=== PATIENT | male | born 1960 | race Caucasian/White ===

== ENCOUNTER 2023-01-06 14:08 | Inpatient (IN) | payer OTHER, MEDICAID ==
[~2023-01-06] VITALS: Ht 172.7 cm; Wt 70.4 kg
[~2023-01-06 14:08] MED LIST: APIX2.5T PO; FLOR.1 PO; FOLI-43 PO; FURO40TA5 PO; GLU500 PO; HYDR-4037 PO; INSU100I22 SQ; LEVA1.2527 NEB; NEU300 PO; PRO40 PO; SENN-153 PO; SSNOVOLOG SUBCUT; THIA100T70 PO; TRAM50TA2 PO
[2023-01-06 14:21] VITALS: BP_SYST 125
--- NOTE | 2023-01-06 14:25 | NUR ---
Patient BIB by EMS for [facility], per EMS patient was found on RA with saturation in the low 80%s, patient was placed on 2L NC by EMS and brought to ED for Eval. Per facility patient baseline is AOx3/4.
--- NOTE | 2023-01-06 14:30 | NUR ---
ER at bedside examining patient.
[2023-01-06 14:55] LABS: BASOPHILS # (AUTO) 0.1 K/uL (0.0-0.2); BASOPHILS % (AUTO) 0.9 % (0.0-2.0); EOSINOPHILS # (AUTO) 0.2 K/uL (0.0-0.4); EOSINOPHILS % (AUTO) 1.5 % (0.0-4.0); HEMATOCRIT 35.6 % (36-54); HEMOGLOBIN 11.8 g/dL (14.0-18.0); LYMPHOCYTES # (AUTO) 2.1 K/uL (1.0-5.5); LYMPHOCYTES % (AUTO) 14.1 % (20.5-51.5); MEAN CORPUSCULAR HEMOGLOBIN 29 pg (27-31); MEAN CORPUSCULAR HGB CONC 33 % (32-36); MEAN CORPUSCULAR VOLUME 88 fL (79.0-98.0); MONOCYTES # (AUTO) 1.4 K/uL (0.0-1.0); MONOCYTES % (AUTO) 9.1 % (1.7-9.3); NEUTROPHILS # (AUTO) 11.2 K/uL (1.8-7.7); NEUTROPHILS % (AUTO) 74.4 % (40.0-70.0); PLATELET COUNT (AUTO) 223 K/uL (130-430); RED BLOOD CELL COUNT(AUTO) 4.04 MIL/uL (4.2-6.2); RED CELL DISTRIBUTION WIDTH 14.6 % (9.0-15.0)
[2023-01-06 15:01] LABS: ANION GAP 7 (5-15); CHLORIDE 98 mmol/L (98-107); CREATININE 1.79 mg/dL (0.55-1.30); GFR AFRICAN AMERICAN 49 mL/min (>90); GLUCOSE 181 mg/dL (70-99); UREA NITROGEN, BLOOD 33 mg/dL (8-21)
--- NOTE | 2023-01-06 15:05 | NUR ---
covid and flu nasal swab collected at bedside and sent to lab
[2023-01-06 15:08] LABS: ALANINE AMINOTRANSFERASE 17 U/L (12-78); ALBUMIN 3.4 g/dL (3.4-4.8); ASPARTATE AMINOTRANSFERASE 10 U/L (10-37); TOTAL BILIRUBIN 0.4 mg/dL (0.0-1.0)
--- NOTE | 2023-01-06 17:34 | NUR ---
Urine specimen taken to lab.
[2023-01-06 17:55] LABS: BILIRUBIN,URINE NEGATIVE (NEGATIVE); COLOR,URINE YELLOW (YELLOW); GLUCOSE,URINE NEGATIVE (NEGATIVE); KETONES,URINE NEGATIVE (NEGATIVE); LEUKOCYTE ESTERASE ,URINE NEGATIVE (NEGATIVE); NITRITE, URINE NEGATIVE (NEGATIVE); PROTEIN URINE 3+ (NEGATIVE); UROBILINOGEN,URINE 0.2 (0.2-1.0)
[2023-01-06 18:04] LABS: BLOOD, URINE TRACE (NEGATIVE)
[2023-01-06] MEDS ORDERED: INSU100I26 SUBCUT (18:04)
[2023-01-06] MEDS ORDERED: DULO30CA52 PO (18:04)
[2023-01-06] MEDS ORDERED: INSU100I4 SUBCUT (18:04)
[2023-01-06 18:08] LABS: BACTERIA,URINE None Seen /HPF (None Seen); MUCUS,URINE None Seen /LPF (None Seen); RBC,URINE 0-3 /HPF (0-3); WBC,URINE NONE SEEN /HPF (0-3)
[2023-01-06 18:09] LABS: CLARITY/URINE CLEAR (CLEAR)
[2023-01-06] MEDS ORDERED: PIPERACILLIN/TAZO 3.375 GM in NS 50 ML IV ONE (18:15)
--- NOTE | 2023-01-06 18:21 | NUR ---
Admit bed requested Patient will be admitted to care of . Admitted to TELEMETRY unit. Diagnosis PNA,DEHYDRATION Inpatient (Yes or No) Y Observation (Yes or No) N Orientation concerns or request close to nursing station (Yes or No) N Covid Status NEG On vent or bipap N Isolation requirements N Needs a sitter N From Home (Yes or if No enter name of facility) [facility] Requires Dialysis (Yes or No) N Med Rec Completed (Yes of No) Y
[2023-01-06] MEDS ORDERED: PIPERACILLIN/TAZOBACTAM 3.375 GM/VIAL (ZOSYN) IV ONE ×2 (18:54→21:42)
--- NOTE | 2023-01-06 19:27 | NUR ---
Report given to Gonzalo
--- NOTE | 2023-01-06 19:30 | NUR ---
Patient resting in bed, alert, chest rise and fall symmetrical, no c/o pain or s/s of distress, on monitor.
--- NOTE | 2023-01-06 19:44 | NUR ---
Note jerilyn in ED - 01/06/23 at 1945 by [id number] Patient resting in bed, alert, chest rise and fall symmetrical, no c/o pain or s/s of distress, on monitor.
--- NOTE | 2023-01-06 20:00 | NUR ---
ADMIT NOTE Received pt from ER with a diagnosis of Pneumonia and Dehydration. He is lethargic, yet arousable and able to state his name and . Admission process initiated. patient oriented to pain management, safety and instructed on use of call light. Safety precautions in place.
[2023-01-06 20:15] VITALS: BP_SYST 121
--- NOTE | 2023-01-06 20:15 | NUR ---
Patient will be admitted to care of Dr. Taylor. Admitted to Telemetry unit. Will go to room 120A. Belongings list completed. Complete and up to date summary report printed. SBAR report to be given at bedside to Ruby VALLADARES with opportunity for questions. Ruby VALLADARES verbalized understanding of report, no further questions.
--- NOTE | 2023-01-06 21:28 | NUR ---
Dr. Parker, rounds Here at [facility]ST unit to see patient, reconcile meds and enter new med orders. Received order to add Boost (Glucerna) TID and give one shake now, TORB.
[2023-01-06] MEDS ORDERED: ACETAMINOPHEN 325 MG TABLET PO PRN (21:30)
[2023-01-06] MEDS ORDERED: hydrALAZINE HCL 10 MG TABLET PO PRN (21:30)
[2023-01-06] MEDS ORDERED: levalbuterol HCL 0.63 MG/3 ML VIAL.NEB INH PRN (21:30)
--- NOTE | 2023-01-06 21:40 | NUR ---
NOTES: Dr. Ashleyium here, seen pt. with admitting orders.
[2023-01-06] MEDS ORDERED: VANCOMYCIN HCL 1 GM/NS PREMIX 250 ML IV ONE (22:45)
[2023-01-06] MEDS: INSULIN REGULAR, HUMAN 100 UNITS/ML, 3 ML VIAL (humuLIN R) SUBCUT PRN (22:54)
[2023-01-06] MEDS: 0.45% NACL 1,000 ML IV SCH (22:57)
[2023-01-06] MEDS: APIXABAN 2.5 MG TABLET PO SCH (22:58)
[2023-01-06 23:23] VITALS: BP_SYST 136
[2023-01-06] MEDS ORDERED: VANCOMYCIN HCL 1000 MG/VIAL IV ONE (23:31)
--- NOTE | 2023-01-06 23:47 | NUR ---
NOTES: IVF started with 1/2 NS @ 75 cc/hr. Glucerna taken orally with medication. BS checked 221 with sliding scale coverage given. rt. knee scab , picture taken.
[2023-01-07] MEDS ORDERED: PIPERACILLIN/TAZO 3.375/DEX-IS 50 ML IV SCH
[2023-01-07 03:03] VITALS: BP_SYST 126
--- NOTE | 2023-01-07 03:05 | NUR ---
NOTES; pt. awake, incontinent of urine, kept dry/ repositioned.
[2023-01-07] MEDS: INSULIN REGULAR, HUMAN 100 UNITS/ML, 3 ML VIAL (humuLIN R) SUBCUT PRN ×4 (06:34→21:43)
--- NOTE | 2023-01-07 06:45 | NUR ---
CLOSING NOTES; BS checked 237, sliding scale coverage given. repositioned and turn to right side. IVF infusing well, site patent. for further assistance. will endorse to incoming shift.
[2023-01-07 07:07] LABS: BASOPHILS # (AUTO) 0.1 K/uL (0.0-0.2); BASOPHILS % (AUTO) 0.6 % (0.0-2.0); EOSINOPHILS # (AUTO) 0.1 K/uL (0.0-0.4); EOSINOPHILS % (AUTO) 0.4 % (0.0-4.0); HEMATOCRIT 32.5 % (36-54); HEMOGLOBIN 10.8 g/dL (14.0-18.0); LYMPHOCYTES # (AUTO) 1.8 K/uL (1.0-5.5); LYMPHOCYTES % (AUTO) 11.8 % (20.5-51.5); MEAN CORPUSCULAR HEMOGLOBIN 29 pg (27-31); MEAN CORPUSCULAR HGB CONC 33 % (32-36); MEAN CORPUSCULAR VOLUME 88 fL (79.0-98.0); MONOCYTES # (AUTO) 1.4 K/uL (0.0-1.0); MONOCYTES % (AUTO) 9.5 % (1.7-9.3); NEUTROPHILS # (AUTO) 11.7 K/uL (1.8-7.7); NEUTROPHILS % (AUTO) 77.7 % (40.0-70.0); PLATELET COUNT (AUTO) 197 K/uL (130-430); RED BLOOD CELL COUNT(AUTO) 3.68 MIL/uL (4.2-6.2); RED CELL DISTRIBUTION WIDTH 14.7 % (9.0-15.0); WHITE BLOOD COUNT (AUTO) 15.1 K/uL (4.8-10.8)
[2023-01-07] MEDS: levalbuterol HCL 0.63 MG/3 ML VIAL.NEB INH SCH ×3 (07:19→23:23)
[2023-01-07 07:21] LABS: CALCIUM 8.6 mg/dL (8.4-11.0); CREATININE 1.74 mg/dL (0.55-1.30)
[2023-01-07] MEDS: 0.45% NACL 1,000 ML IV SCH ×2 (07:50→16:05)
[2023-01-07 08:57] VITALS: BP_SYST 127
[2023-01-07] MEDS: DULoxetine HCL 30 MG CAPSULE.DR (CYMBALTA) PO SCH ×2 (09:15→21:41)
[2023-01-07] MEDS: FLUDROCORTISONE ACETATE 0.1 MG TABLET( FLORINEF) PO SCH (09:15)
[2023-01-07] MEDS: THIAMINE HCL 100 MG TABLET PO SCH (09:15)
[2023-01-07] MEDS: PANTOPRAZOLE SODIUM 40 MG TAB PO SCH ×2 (09:16→21:41)
[2023-01-07] MEDS: FOLIC ACID 1 MG TABLET PO SCH (09:16)
[2023-01-07] MEDS: GABAPENTIN 300 MG CAPSULE PO SCH ×3 (09:16→21:38)
[2023-01-07] MEDS: PIPERACILLIN/TAZO 3.375/DEX-IS 50 ML IV SCH ×3 (09:17→17:41)
[2023-01-07] MEDS: APIXABAN 2.5 MG TABLET PO SCH ×2 (09:19→21:40)
[2023-01-07 11:22] VITALS: BP_SYST 146
[2023-01-07 16:53] VITALS: BP_SYST 152
--- NOTE | 2023-01-07 19:51 | NUR ---
RECEIVED PT LYING IN BED, NO DISTRESS NOTED, DENIES PAIN. AAOX1, O2 SAT ON RA 92% APPLIED 2 L VIA NC O2 SAT 95% DIMINISHED LUNG SOUNDS TO RT SIDE, ABD DISTENDED AND FIRM, WEAK PULSES TO BLE. BED IN LOW POSITION, BED ALARM ON , CALL LIGHT WITHIN REACH. Addendum: 01/07/23 at 2213 by [place] JACQUELYN Lauernt RN SCAB NOTED TO RT KNEE, NONBLANCHABLE REDNESS NOTED TO SACRUM. CLEANED, COVERED WITH A MEPILEX BORDER, AND REPOSITIONED
[2023-01-07 20:00] VITALS: BP_SYST 138
[2023-01-07] MEDS: SENNOSIDES 8.6 MG TABLET PO SCH (21:38)
[2023-01-07] MEDS: MEGESTROL ACETATE 400 MG/10 ML UDC PO SCH (21:41)
[2023-01-07] MEDS: VANCOMYCIN HCL 1,000 MG in NS 250 ML IV SCH (21:45)
[2023-01-08] VITALS: BP_SYST 127
[2023-01-08] MEDS: PIPERACILLIN/TAZO 3.375/DEX-IS 50 ML IV SCH ×4 (01:20→17:51)
[2023-01-08] MEDS: INSULIN REGULAR, HUMAN 100 UNITS/ML, 3 ML VIAL (humuLIN R) SUBCUT PRN ×4 (06:28→20:44)
[2023-01-08] MEDS: levalbuterol HCL 0.63 MG/3 ML VIAL.NEB INH SCH ×2 (07:19→15:12)
[2023-01-08 07:20] LABS: BASOPHILS # (AUTO) 0.1 K/uL (0.0-0.2); BASOPHILS % (AUTO) 0.4 % (0.0-2.0); EOSINOPHILS # (AUTO) 0.2 K/uL (0.0-0.4); EOSINOPHILS % (AUTO) 1.2 % (0.0-4.0); HEMATOCRIT 28.6 % (36-54); HEMOGLOBIN 9.5 g/dL (14.0-18.0); LYMPHOCYTES # (AUTO) 1.2 K/uL (1.0-5.5); LYMPHOCYTES % (AUTO) 8.1 % (20.5-51.5); MEAN CORPUSCULAR HEMOGLOBIN 30 pg (27-31); MEAN CORPUSCULAR HGB CONC 33 % (32-36); MEAN CORPUSCULAR VOLUME 89 fL (79.0-98.0); MONOCYTES # (AUTO) 1.2 K/uL (0.0-1.0); MONOCYTES % (AUTO) 7.7 % (1.7-9.3); NEUTROPHILS # (AUTO) 12.6 K/uL (1.8-7.7); NEUTROPHILS % (AUTO) 82.6 % (40.0-70.0); PLATELET COUNT (AUTO) 176 K/uL (130-430); RED BLOOD CELL COUNT(AUTO) 3.23 MIL/uL (4.2-6.2); RED CELL DISTRIBUTION WIDTH 14.6 % (9.0-15.0); WHITE BLOOD COUNT (AUTO) 15.3 K/uL (4.8-10.8)
[2023-01-08 07:39] LABS: CALCIUM 8.1 mg/dL (8.4-11.0); CREATININE 1.58 mg/dL (0.55-1.30)
[2023-01-08 08:14] VITALS: BP_SYST 131
[2023-01-08] MEDS: GABAPENTIN 300 MG CAPSULE PO SCH ×3 (08:50→20:35)
[2023-01-08] MEDS: PANTOPRAZOLE SODIUM 40 MG TAB PO SCH ×2 (08:50→20:35)
[2023-01-08] MEDS: DULoxetine HCL 30 MG CAPSULE.DR (CYMBALTA) PO SCH ×2 (08:50→20:35)
[2023-01-08] MEDS: FLUDROCORTISONE ACETATE 0.1 MG TABLET( FLORINEF) PO SCH (08:50)
[2023-01-08] MEDS: THIAMINE HCL 100 MG TABLET PO SCH (08:51)
[2023-01-08] MEDS: MEGESTROL ACETATE 400 MG/10 ML UDC PO SCH ×2 (08:51→20:35)
[2023-01-08] MEDS: FOLIC ACID 1 MG TABLET PO SCH (08:51)
[2023-01-08] MEDS: APIXABAN 2.5 MG TABLET PO SCH ×2 (08:51→20:35)
[2023-01-08] MEDS: CITALOPRAM HYDROBROMIDE 20 MG TABLET PO SCH (08:51)
[2023-01-08] MEDS: 0.45% NACL 1,000 ML IV SCH (10:47)
[2023-01-08 12:00] VITALS: BP_SYST 141
--- NOTE | 2023-01-08 14:50 | NUR ---
NOTE Dr Parker was at bedside assessing pt and feeding pt his lunch (1400). (Pt refused RN or DATA CONSULTANT's help with lunch). Order for dc tele unit received and tele unit dc'd and returned to electronic device monitor at this time. Pt's bed alarm on and bed in low position, and side rails raised. Pt near nurses' station for close observation for needs and care. Call light within reach.
[2023-01-08 16:00] VITALS: BP_SYST 131
--- NOTE | 2023-01-08 18:50 | NUR ---
End of shift Pt was assisted in eating his dinner by RN. Pt denies any SOB/resp distress or chest pain/discomfort all shift. Pt was given hygiene care for urine incontinence all shift. Bed in low position and bed alarm on. Side rails raised. Pt next to nurses' station for close observation for needs and care. Call light within reach. Pt on O2 at 2L/nc all shift. Dr Parker was at bedside when pt was eating his dinner. No needs noted at this time. Addendum: 01/08/23 at 1901 by Nallely Mayo RN pt was checked on q1' and PRN all shift for needs and care. Pt was maintained with safety precautions all shift.
[2023-01-08 19:30] VITALS: BP_SYST 144
--- NOTE | 2023-01-08 19:30 | NUR ---
PM ASSESSMENT; -Pt is a/ox2, resting in bed comfortably. Pt denies any chest pain,sob,or any acute distress. VS stable,u5hsa=00% 2L nc oxy. Unable to discuss poc d/t cognitive limitation and no family is available this time. Bed alarmed, side rails x3,call light w/in reach. Cont to monitor pt.
[2023-01-08] MEDS: SENNOSIDES 8.6 MG TABLET PO SCH (20:35)
[2023-01-08] MEDS: VANCOMYCIN HCL 1,000 MG in NS 250 ML IV SCH (20:35)
[2023-01-09] MEDS: levalbuterol HCL 0.63 MG/3 ML VIAL.NEB INH SCH ×4 (00:27→23:23)
--- NOTE | 2023-01-09 00:30 | NUR ---
ROUNDS; Pt is asleep. No s/s any pain,sob,or any acute distress noted. All safety measures in place. Cont to monitor pt.
[2023-01-09 01:08] VITALS: BP_SYST 144
[2023-01-09] MEDS: PIPERACILLIN/TAZO 3.375/DEX-IS 50 ML IV SCH ×4 (01:20→18:00)
[2023-01-09] MEDS: 0.45% NACL 1,000 ML IV SCH ×2 (01:21→13:10)
--- NOTE | 2023-01-09 03:40 | NUR ---
ROUNDS; Pt is asleep. No s/s any pain,sob,or any acute distress noted. All safety measures in place. Cont to monitor pt.
[2023-01-09 05:21] LABS: BASOPHILS # (AUTO) 0.1 K/uL (0.0-0.2); BASOPHILS % (AUTO) 0.3 % (0.0-2.0); EOSINOPHILS # (AUTO) 0.1 K/uL (0.0-0.4); EOSINOPHILS % (AUTO) 0.7 % (0.0-4.0); HEMATOCRIT 29.5 % (36-54); HEMOGLOBIN 9.7 g/dL (14.0-18.0); LYMPHOCYTES # (AUTO) 1.3 K/uL (1.0-5.5); LYMPHOCYTES % (AUTO) 8.3 % (20.5-51.5); MEAN CORPUSCULAR HEMOGLOBIN 29 pg (27-31); MEAN CORPUSCULAR HGB CONC 33 % (32-36); MEAN CORPUSCULAR VOLUME 89 fL (79.0-98.0); MONOCYTES # (AUTO) 1.4 K/uL (0.0-1.0); NEUTROPHILS # (AUTO) 12.5 K/uL (1.8-7.7); NEUTROPHILS % (AUTO) 81.7 % (40.0-70.0); PLATELET COUNT (AUTO) 191 K/uL (130-430); RED BLOOD CELL COUNT(AUTO) 3.32 MIL/uL (4.2-6.2); RED CELL DISTRIBUTION WIDTH 14.4 % (9.0-15.0); WHITE BLOOD COUNT (AUTO) 15.3 K/uL (4.8-10.8)
[2023-01-09] MEDS: INSULIN REGULAR, HUMAN 100 UNITS/ML, 3 ML VIAL (humuLIN R) SUBCUT PRN ×4 (05:46→22:24)
[2023-01-09 05:49] LABS: ALBUMIN 2.3 g/dL (3.4-4.8); CALCIUM 8.4 mg/dL (8.4-11.0); CREATININE 1.66 mg/dL (0.55-1.30); TOTAL BILIRUBIN 0.8 mg/dL (0.0-1.0)
--- NOTE | 2023-01-09 06:48 | NUR ---
CLOSING NOTES; -Pt is asleep. No s/s any pain,sob,or any acute distress noted. All safety measures in place. Pt's condition stable. Will endorse to next nurse to continuity of care.
[2023-01-09 08:00] VITALS: BP_SYST 131
--- NOTE | 2023-01-09 08:14 | NUR ---
opening notes: pt in bed eating breakfast. breathing is even and unlabored on 2l nc 92%. no s/s of distress or pain reported. all needs met at this time ,safety checks made and call light within reach.
[2023-01-09] MEDS: FLUDROCORTISONE ACETATE 0.1 MG TABLET( FLORINEF) PO SCH (08:55)
[2023-01-09] MEDS: FOLIC ACID 1 MG TABLET PO SCH (08:55)
[2023-01-09] MEDS: GABAPENTIN 300 MG CAPSULE PO SCH ×3 (08:55→22:17)
[2023-01-09] MEDS: DULoxetine HCL 30 MG CAPSULE.DR (CYMBALTA) PO SCH ×2 (08:55→22:16)
[2023-01-09] MEDS: CITALOPRAM HYDROBROMIDE 20 MG TABLET PO SCH (08:55)
[2023-01-09] MEDS: THIAMINE HCL 100 MG TABLET PO SCH (08:55)
[2023-01-09] MEDS: PANTOPRAZOLE SODIUM 40 MG TAB PO SCH ×2 (08:55→22:17)
[2023-01-09] MEDS: MEGESTROL ACETATE 400 MG/10 ML UDC PO SCH ×2 (08:55→22:17)
[2023-01-09] MEDS: APIXABAN 2.5 MG TABLET PO SCH ×2 (08:58→22:17)
[2023-01-09 12:27] VITALS: BP_SYST 152
--- NOTE | 2023-01-09 12:29 | NUR ---
Referral sent to [facility] for placement
[2023-01-09 16:36] VITALS: BP_SYST 138
[2023-01-09] MEDS ORDERED: ONDANSETRON HCL 4 MG/2 ML VIAL IVP PRN (18:00)
--- NOTE | 2023-01-09 18:23 | NUR ---
CLOSING NOTES: BATHED PATIENT WITH STATISTICAL MACHINE SERVICER, CHANGED ALL LINENS, APPLIED A NEW GOWN AND DEODORANT. REPOSITIONED WITH PILLOW SUPPORT. PATIENT IS WATCHING TV IN BED. REAPPLIED 2L NC, BREATHING IS EVEN AND UNLABORED. ALL NEEDS MET AT THIS TIME, SAFETY CHECKS MADE AND CALL LIGHT WITHIN REACH. WILL ENDORSE TO CONTENT PRODUCER NURSE.
[2023-01-09 19:35] VITALS: BP_SYST 157
[2023-01-09] MEDS: SENNOSIDES 8.6 MG TABLET PO SCH (22:17)
[2023-01-10] VITALS: BP_SYST 142
[2023-01-10] MEDS: PIPERACILLIN/TAZO 3.375/DEX-IS 50 ML IV SCH ×3 (02:17→11:23)
[2023-01-10] MEDS: 0.45% NACL 1,000 ML IV SCH (02:17)
[2023-01-10] MEDS: INSULIN REGULAR, HUMAN 100 UNITS/ML, 3 ML VIAL (humuLIN R) SUBCUT PRN ×2 (06:33→12:00)
--- NOTE | 2023-01-10 06:59 | NUR ---
CLOSING NOTE NO CHANGES. PATIENT REMAINS ON 2L NASAL CANNULA, HE HAD NO ACUTE RESPIRATORY EVENTS DURING THE NIGHT. HE REMAINS STABLE. WILL CONTINUE TO MONITOR UNTIL REPORT IS GIVEN AT BEDSIDE TO AM NURSE.
[2023-01-10] MEDS: levalbuterol HCL 0.63 MG/3 ML VIAL.NEB INH SCH (07:09)
[2023-01-10 07:30] VITALS: BP_SYST 135
--- NOTE | 2023-01-10 07:30 | NUR ---
Opening notes Patient laying in bed, A/O x3 [place] speaking. Patient Breathing even and unlabored on 2LPM nasal cannula. No pain, no distress, no SOB. [facility] and is a feeder. Patient has RAC 22g . Patient is bed bound. Bed is locked in lowest position. Call light within reach, all needs met, will continue with plan of care.
[2023-01-10 07:50] LABS: BASOPHILS % (AUTO) 0.3 % (0.0-2.0); EOSINOPHILS # (AUTO) 0.2 K/uL (0.0-0.4); EOSINOPHILS % (AUTO) 1.3 % (0.0-4.0); HEMATOCRIT 27.3 % (36-54); HEMOGLOBIN 9.1 g/dL (14.0-18.0); LYMPHOCYTES # (AUTO) 1.5 K/uL (1.0-5.5); LYMPHOCYTES % (AUTO) 9.9 % (20.5-51.5); MEAN CORPUSCULAR HEMOGLOBIN 29 pg (27-31); MEAN CORPUSCULAR HGB CONC 33 % (32-36); MEAN CORPUSCULAR VOLUME 88 fL (79.0-98.0); MONOCYTES # (AUTO) 1.2 K/uL (0.0-1.0); MONOCYTES % (AUTO) 8.2 % (1.7-9.3); NEUTROPHILS # (AUTO) 11.9 K/uL (1.8-7.7); NEUTROPHILS % (AUTO) 80.3 % (40.0-70.0); PLATELET COUNT (AUTO) 198 K/uL (130-430); RED CELL DISTRIBUTION WIDTH 14.5 % (9.0-15.0); WHITE BLOOD COUNT (AUTO) 14.8 K/uL (4.8-10.8)
[2023-01-10 07:55] LABS: CALCIUM 8.2 mg/dL (8.4-11.0); CREATININE 1.41 mg/dL (0.55-1.30)
[2023-01-10] MEDS: MEGESTROL ACETATE 400 MG/10 ML UDC PO SCH (09:21)
[2023-01-10] MEDS: CITALOPRAM HYDROBROMIDE 20 MG TABLET PO SCH (09:21)
[2023-01-10] MEDS: FLUDROCORTISONE ACETATE 0.1 MG TABLET( FLORINEF) PO SCH (09:21)
[2023-01-10] MEDS: PANTOPRAZOLE SODIUM 40 MG TAB PO SCH (09:21)
[2023-01-10] MEDS: DULoxetine HCL 30 MG CAPSULE.DR (CYMBALTA) PO SCH (09:21)
[2023-01-10] MEDS: THIAMINE HCL 100 MG TABLET PO SCH (09:21)
[2023-01-10] MEDS: FOLIC ACID 1 MG TABLET PO SCH (09:21)
[2023-01-10] MEDS: GABAPENTIN 300 MG CAPSULE PO SCH (09:21)
[2023-01-10] MEDS: APIXABAN 2.5 MG TABLET PO SCH (09:22)
[2023-01-10 11:36] VITALS: BP_SYST 142
[2023-01-10] MEDS ORDERED: POTASSIUM CHLORIDE 20 MEQ/PKT PACKET PO ONE ×2 (13:00)
[2023-01-10 13:38] VITALS: BP_SYST 142
--- NOTE | 2023-01-10 14:00 | NUR ---
D/C Patient Patient given medication reconciliation form and D/C instructions. Exit Care provided. Patient verbalized understanding. MD Parker discussed with patient the results and treatment provided. Ambulatory with steady gait for discharge to home. Patient in stable condition, ID band removed. IV catheter removed, intact and dressing applied, no active bleeding. Rx of given. Patient educated on pain management. All belongings sent with patient.
--- NOTE | 2023-01-10 14:33 | NUR ---
Patient to transfer to [facility] room 27B-Number for report [phone]. Transport by [facility] at 2 PM
== END 2023-01-10 13:59 | DRG 871 ==
LOC: SED 14:08 → STU 18:18 → SMU 01-08 19:45
PROVIDERS: ADMIT Family Medicine; ATTEND Family Medicine
DX: A41.9 Sepsis, unspecified organism (principal); J18.9 Pneumonia, unspecified organism; N17.0 Acute kidney failure with tubular necrosis; J44.0 Chronic obstructive pulmonary disease with (acute) lower respiratory infection; E11.40 Type 2 diabetes mellitus with diabetic neuropathy, unspecified; E86.0 Dehydration; Z20.822 Contact with and (suspected) exposure to COVID-19; D64.9 Anemia, unspecified; I10 Essential (primary) hypertension; Z87.891 Personal history of nicotine dependence; Z95.2 Presence of prosthetic heart valve
CPT/HCPCS: 36415; 71045; 80048; 80053; 81000; 83605; 83735; 83880; 84484; 85025; 87040; 87081; 87086; 87101; 93005; 94640; 94760; 96365; 99285; G0378; J2543; J3370; J7050; J7614